=== PATIENT | female | born 1950 | race Two or more races ===

== ENCOUNTER → 2024-07-26 | Outpatient (CLI) | payer MEDICARE, MEDICAID, SELFPAY ==
--- NOTE | 2024-07-26 15:15 | XR_ITS ---
Examination: Screening digital mammography, bilateral Computer aided detection 3-D breast Tomosynthesis, bilateral Date and time of exam: July 26, 2024 1517 hours Compared to mammograms dated to August 12, 2011 Indication: Screening Technique: Nonmagnified MLO, CC views of the breasts to been obtained, reconstructed from 3-D Tomosynthesis images. R2 computer aided detection program utilized for evaluation of suspicious masses and/or abnormal calcifications. 3-D Tomosynthesis images obtained. Findings: The breasts are heterogeneously dense, which may obscure small masses 12 mm focal asymmetry upper right breast MLO view, 4.9 cm from the nipple Benign calcifications Impression: BI-RADS Category 0: Incomplete: Need additional imaging evaluation 12 mm focal asymmetry upper right breast MLO view, 4.9 cm from the nipple, recommend follow-up spot tomographic views upper outer quadrant right breast right breast sonography to complete the workup
== END | disposition home or self-care (01) ==
PROVIDERS: PCP Nurse Practitioner Family; Referring Provider Nurse Practitioner Family; Visit Provider Nurse Practitioner Family
DX: Z12.31 Encounter for screening mammogram for malignant neoplasm of breast (principal); R92.8 Other abnormal and inconclusive findings on diagnostic imaging of breast; N64.89 Other specified disorders of breast
CPT/HCPCS: 77063; 77067

== ENCOUNTER → 2024-08-06 | Outpatient (CLI) | payer MEDICARE, MEDICAID, SELFPAY ==
--- NOTE | 2024-08-06 11:30 | XR_ITS ---
Examination: Breast ultrasound, unilateral, right complete Date and time of exam: August 06, 2024 1335 hours INDICATIONS: Mammogram July 26, 2024 12 mm focal asymmetry upper right breast Technique: Real-time gonzalez scale ultrasonographic imaging performed right breast including all 4 quadrants as well as nipple retroareolar and axillary region. Findings: 6:00 mass with calcifications, shadowing, 10 x 6 x 10 mm, lobular margins IMPRESSION: BI-RADS Category 0: Incomplete: Need additional imaging evaluation Recommend this patient return for repeat right breast sonography with the radiologist in attendance
--- NOTE | 2024-08-06 13:15 | XR_ITS ---
Examination: Diagnostic digital mammography, unilateral, right Computer aided detection 3-D breast Tomosynthesis, unilateral Date and time of exam: August 06, 2024 at 1345 hours INDICATIONS: Mammogram July 26, 2024 12 mm focal asymmetry upper right breast MLO view Technique: Nonmagnified MLO, CC views of the right breast have been obtained, reconstructed from 3-D Tomosynthesis images. R2 computer aided detection program utilized for evaluation of suspicious masses and/or abnormal calcifications. 3-D Tomosynthesis images obtained. Findings: The breast is heterogeneously dense, which may obscure small masses Benign calcifications No suspicious mass is depicted on the spot compression views However, please see the ultrasound recommendation today, patient to return for repeat right breast sonography with the radiologist in attendance Impression: BI-RADS category 0: Incomplete: Need additional imaging evaluation This patient should return for repeat right breast sonography with the radiologist in attendance
== END | disposition home or self-care (01) ==
LOC: CDIM 13:08
PROVIDERS: PCP Nurse Practitioner Family; Referring Provider Nurse Practitioner Family; Visit Provider Nurse Practitioner Family
DX: R92.8 Other abnormal and inconclusive findings on diagnostic imaging of breast (principal)
CPT/HCPCS: 76641; 77061; 77065; G0279

== ENCOUNTER → 2024-08-27 | Outpatient (CLI) | payer MEDICARE, MEDICAID, SELFPAY ==
--- NOTE | 2024-08-27 09:00 | XR_ITS ---
Examination: Breast ultrasound, unilateral, right complete Date and time of exam: August 27, 2024 0918 hours, right breast sonogram August 06, 2024 6:00 mass with calcifications 10 x 6 x 10 mm Technique: Real-time gonzalez scale ultrasonographic imaging performed right breast including all 4 quadrants as well as nipple retroareolar and axillary region. Findings: No cystic or solid mass depicted Glandular tissue at the area of concern in the 7:00 position IMPRESSION: BI-RADS Category 3: Probably benign findings Recommend 1 additional 6 month right breast sonogram follow-up
== END | disposition home or self-care (01) ==
LOC: SDIM 08:40
PROVIDERS: PCP Nurse Practitioner Family
DX: R92.8 Other abnormal and inconclusive findings on diagnostic imaging of breast (principal)
CPT/HCPCS: 76641